=== PATIENT | female | born 1995 | race Caucasian/White ===

== ENCOUNTER 2017-12-10 13:49 | Emergency (ER) | payer OTHER ==
[~2017-12-10] VITALS: Ht 162.6 cm; Wt 55.3 kg
[2017-12-10 14:00] VITALS: TEMP 36.7; Ht 162.6 cm; Wt 55.3 kg
--- NOTE | 2017-12-10 14:44 | DIAGNOSTIC IMAGING REPORT ---
CHEST 2 VIEWS ROUTINE CLINICAL HISTORY: cough, flu-like symptoms COMPARISON STUDY: No previous studies for comparison. FINDINGS: Lung volumes are normal. There is no consolidation to suggest pneumonia. There is no evidence of pulmonary edema. Cardiomediastinal silhouette is normal. There is no pneumothorax or pleural effusion. IMPRESSION: No acute cardiopulmonary findings. Electronically signed by: Atilio Kingsley M.D. 12/10/2017 2:43 PM Dictated Date/Time: 12/10/2017 2:42 PM
[2017-12-10 15:23] LABS: INFLUENZA B ANTIGEN POS for Influ B (NEG)
[2017-12-10] MEDS ORDERED: TOPI50TA16 PO (15:26)
[2017-12-10] MEDS ORDERED: SUMA50TA15 PO (15:26)
--- NOTE | 2017-12-10 15:36 | EMERGENCY ROOM VISIT NOTE ---
History First contact with patient: 14:16 Chief Complaint: CONGESTION Stated Complaint: SINUS CONGESTION,RUNNY NOSE,RAMIRES,COUGH,SWOLLEN THROA Nursing Triage Summary: PT presents with cough an congestion X 1 week. PT has yellow mucous production and fever. PT also has sore throat. PT denies vomiting. History of Present Illness The patient is a 22 year old female who presents to the Emergency Room with complaints of flulike symptoms. The patient reports that for the past one week , she has had a headache, body aches, sore throat and cough. The headache is frontal and bilateral. She rates her overall discomfort a 6/10. The patient states that she recently returned from [place] and when she was home, she was visiting her grandmother in the hospital and was around several people had the flu. She has been using TheraFlu at home for her symptoms. She did not receive a flu vaccine this year. She denies any neck pain/stiffness, diarrhea, nausea/vomiting or shortness of breath. Review of Systems A complete 10 point review of systems was reviewed with the patient with pertinent positives and negatives as per history of present illness. All else were negative. Social History Smoking Status: Never Smoker Alcohol Use: none Marital Status: single Housing Status: lives with significant other Occupation Status: [employer] student Current/Historical Medications Scheduled Sumatriptan Succinate (Imitrex), 50 MG PO PRN Topiramate (Topamax), 1 TAB PO BID Physical Exam Vital Signs Date Time Temp Pulse Resp B/P (MAP) Pulse Ox O2 Delivery O2 Flow Rate FiO2 12/10/17 15:42 101 17 116/69 97 12/10/17 14:00 36.7 111 18 134/80 97 Room Air Physical Exam VITALS: Vitals are noted on the nurse's note and reviewed by myself. Vital signs stable. GENERAL: This is a 22-year-old female, in no acute distress, nondiaphoretic, well-developed well-nourished. SKIN: The skin was without rashes. EARS: External auditory canals clear, tympanic membranes pearly castro without erythema or effusion bilaterally. EYES: Pupils equal round and reactive to light and accommodation. NOSE: Patent, turbinates without inflammation or discharge. MOUTH: Mucous membranes moist. Tonsils are not enlarged. Pharynx without erythema or exudate. NECK: Supple without nuchal rigidity. No lymphadenopathy. Full range of motion of the neck, No meningismus. HEART: Regular rate and rhythm without murmurs gallops or rubs. LUNGS: Clear to auscultation bilaterally without wheezes, rales or rhonchi. No retractions or accessory muscle use. ABDOMEN: Soft, nontender to palpation. NEURO: Patient was alert and oriented to person place and time. Medical Decision & Procedures Laboratory Results Test 12/10/17 14:30 Influenza Type A Antigen Neg for Influ A (NEG) Influenza Type B Antigen POS for Influ B (NEG) Medical Decision Differential diagnosis includes influenza, pneumonia, upper respiratory infection, viral illness, among others. The patient was evaluated as above. She presents with flulike symptoms and recently had an exposure to the flu. Chest x-ray shows no pneumonia. Influenza B was positive. Patient has had symptoms for 1 week and I do not feel that Tamiflu will be beneficial. I did offer this to the patient and discussed risks/benefits, but she declines at this time. Conservative measures were discussed with the patient. She was encouraged to stay hydrated and use [id number] medications as needed for her symptoms. There is no evidence of meningitis on exam. She will follow-up with [facility] as needed. She verbalized understanding of my assessment and treatment plan and was discharged home in good condition. Medication Reconcilliation Current Medication List: was personally reviewed by me Blood Pressure Screening Patient's blood pressure: Normal blood pressure Impression Primary Impression: Influenza B Departure Information Dispostion Home / Self-Care Condition GOOD Patient Instructions My [facility] Additional Instructions For pain control, you can use the following [id number] medicines (if >12 yo): - Regular strength (325mg/tab) Tylenol (acetaminophen) 2 tabs every 4-6 hours as needed. Do not exceed 12 tablets in a 24 hour period. Avoid taking more than 4 grams (4000 mg) of Tylenol per day. This includes any other sources of acetaminophen you may take on a regular basis. - Regular strength (200 mg/tab) Advil (ibuprofen) 1-2 tabs every 4-6 hours as needed. Do not exceed a dose of 3200 mg per day. Make sure to rest and drink plenty of fluids. You may take Sudafed (pseudoephedrine) [id number] to help with the congestion. [facility] if you have persistent or worsening symptoms. Return to the emergency department with any difficulty breathing, neck pain/ stiffness, or any other new/concerning symptoms.
[2017-12-10 15:42] VITALS: BP 116/69; PULSE 101; O2SAT 97
== END 2017-12-10 15:43 | disposition home or self-care (01) ==
LOC: C.EDB 13:51 → C.EDA 15:43
DX: J10.1 Influenza due to other identified influenza virus with other respiratory manifestations (principal)